=== PATIENT | male | born 1995 | race Caucasian/White ===

== ENCOUNTER 2022-08-12 16:53 | Inpatient (IN) | payer OTHER ==
[2022-08-12] MEDS ORDERED: SODIUM CHLORIDE 0.9% 1,000 ML IV STA ×2 (17:13)
[2022-08-12] MEDS ORDERED: ONDANSETRON 4 MG/2 ML VIAL IVP STA (17:13)
--- NOTE | 2022-08-12 17:14 | ED ---
Recheck HPI - General Chief Complaint: Arrhythmia/Palpitations Stated Complaint: Withdrawal Time Seen by Provider: 08/12/22 16:54 Source: patient, EMS, RN notes reviewed, old records reviewed, Caregiver Mode of arrival: EMS Limitations: no limitations - History of Present Illness Initial Comments: This is a 27-year-old male who presents from [facility]. Patient presents for evaluation of polysubstance abuse and use, most recently 3-4 days ago. Patient was found to be a significant elevated heart rate prior to arrival in the 180s 170s they did believe is atrial fibrillation with EMS and [place]. Patient has presentation for that as well as persistent withdrawal symptoms MD Complaint: other (Patient was sent for evaluation of withdrawal symptoms, nausea weakness sweating palpitations and possible atrial fibrillation as an outpatient) -: hour(s) Returns Today for: persistent/worsening pain related to initial visit Symptoms Since Prior Visit: no new symptoms Associated Symptoms: shortness of breath, nausea Treatments Prior to Arrival: other - Related Data Allergies Allergy/AdvReac Type Severity Reaction Status Date / Time No Known Allergies Allergy Verified 08/12/22 17:17 Review of Systems ROS Statement: Those systems with pertinent positive or pertinent negative responses have been documented in the HPI. ROS Other: All systems not noted in ROS Statement are negative. General Exam Limitations: no limitations General appearance: anxious Head exam: Present: atraumatic, normocephalic, normal inspection Eye exam: Present: normal appearance, PERRL, EOMI. Absent: scleral icterus, conjunctival injection, periorbital swelling ENT exam: Present: normal exam, mucous membranes moist Neck exam: Present: normal inspection. Absent: tenderness, meningismus, lymphadenopathy Respiratory exam: Present: normal lung sounds bilaterally. Absent: respiratory distress, wheezes, rales, rhonchi, stridor Cardiovascular Exam: Present: regular rate, normal rhythm, normal heart sounds. Absent: systolic murmur, diastolic murmur, rubs, gallop, clicks GI/Abdominal exam: Present: soft, normal bowel sounds. Absent: distended, tenderness, guarding, rebound, rigid Extremities exam: Present: normal inspection, full ROM, normal capillary refill. Absent: tenderness, pedal edema, joint swelling, calf tenderness Back exam: Present: normal inspection Neurological exam: Present: alert, oriented X3, CN II-XII intact Psychiatric exam: Present: normal affect, normal mood Skin exam: Present: warm, dry, intact, normal color. Absent: rash Course Vital Signs 08/12/22 16:58 Temperature 97.4 F L Pulse Rate 90 Respiratory 24 Rate Blood Pressure 158/100 O2 Sat by Pulse 98 Oximetry - Reevaluation(s) Reevaluation #1: 08/12/22 18:10 Medical records reviewed Reevaluation #2: 08/12/22 18:10 Patient has no change in symptoms here in the ER mildly improving in symptoms Reevaluation #3: 08/12/22 18:10 Patient informed results questions are answered Reevaluation #4: 08/12/22 18:11 Was pt. sent in by a medical professional or institution? @ -yes [facility] sent in for outside of their scope Did you speak to anyone other than the patient for history? @ -EMS and [facility] Did you review nursing and triage notes? @ -agree Were old charts reviewed? @ -prior admissions and ER evaluaions are reviewed Differential Diagnosis? @ -tachycardia EKG interpreted by me (3pts min.)? @ -yes X-rays interpreted by me (1pt min.)? @ -no CT interpreted by me (1pt min.)? @ -no U/S interpreted by me (1pt. min.)? @ -no What testing was considered but not performed? (CT, X-rays, U/S, labs)? Why? @ -no What meds were considered but not given? Why? @ -no patient with no current complaints Did you discuss the management of the patient with other professionals? @ -no Did you reconcile home meds? @ -no Was smoking cessation discussed for >3mins.? @ -no Was critical care preformed (if so, how long)? @ -no Were there social determinants of health that impacted care today? How? (Homelessness, low income, unemployed, alcoholism, drug addiction, transportation, low edu. Level, literacy, decrease access to med. care, senior care, rehab)? @ -no Was there de-escalation of care discussed even if they declined? (Discuss DNR or withdrawal of care, Hospice)? @ -no What co-morbidities impacted this encounter? (DM, HTN, Smoking, COPD, CAD, Cancer, CVA, Hep., AIDS, mental health diagnosis, sleep apnea, morbid obesity)? @ -none Was patient admitted / discharged? @ -admit Undiagnosed new problem with uncertain prognosis? @ -multiple falls history of, R elbow abrasion Drug Therapy requiring intensive monitoring for toxicity (Heparin, Nitro, Insulin, Cardizem)? @ -no Were any procedures done? @ -no Diagnosis/symptom? @ -withdrawal, ?afib Acute, or Chronic, or Acute on Chronic? @ -acute Uncomplicated (without systemic symptoms) or Complicated (systemic symptoms)? @ -uncompicated Side effects of treatment? @ -none Exacerbation, Progression, or Severe Exacerbation] @ -no Poses a threat to life or bodily function? @ -no Medical Decision Making - Medical Decision Making 27 male DF from [place] where he is going through polysubstance abuse wi thdrawal. Patient was found to be in possible atrial fibrillation with a heart rate in the 1 Dese which she is in normal sinus rhythm here EMS did also state that he did appear to go from heart rates of 180s to 90s here during transport. Patient uses multiple different substances with most recently is being about 4 days ago, patient is on prescribe Suboxone. - Lab Data Result diagrams: 08/12/22 17:20 08/12/22 17:20 Lab Results 08/12/22 08/12/22 08/12/22 Range/Units 17:20 17:20 17:20 WBC 6.9 (3.8-10.6) k/uL RBC 4.47 (4.30-5.90) m/uL Hgb 13.4 (13.0-17.5) gm/dL Hct 36.9 L (39.0-53.0) % MCV 82.6 (80.0-100.0) fL MCH 29.9 (25.0-35.0) pg MCHC 36.2 (31.0-37.0) g/dL RDW 12.6 (11.5-15.5) % Plt Count 209 (150-450) k/uL MPV 7.2 Neutrophils % 74 % Lymphocytes % 14 % Monocytes % 8 % Eosinophils % 1 % Basophils % 0 % Neutrophils # 5.1 (1.3-7.7) k/uL Lymphocytes # 1.0 (1.0-4.8) k/uL Monocytes # 0.5 (0-1.0) k/uL Eosinophils # 0.1 (0-0.7) k/uL Basophils # 0.0 (0-0.2) k/uL Hyperchromasia Slight PT 11.8 (9.0-12.0) sec INR 1.1 (<1.2) APTT 24.9 (22.0-30.0) sec Sodium 138 (137-145) mmol/L Potassium 3.7 (3.5-5.1) mmol/L Chloride 99 (98-107) mmol/L Carbon Dioxide 26 (22-30) mmol/L Anion Gap 13 mmol/L BUN 8 L (9-20) mg/dL Creatinine 0.62 L (0.66-1.25) mg/dL Est GFR (CKD-EPI)AfAm >90 (>60 ml/min/1.73 sqM) Est GFR (CKD-EPI)NonAf >90 (>60 ml/min/1.73 sqM) Glucose 104 H (74-99) mg/dL Calcium 9.6 (8.4-10.2) mg/dL Phosphorus 2.9 (2.5-4.5) mg/dL Magnesium 1.6 (1.6-2.3) mg/dL Total Bilirubin 1.0 (0.2-1.3) mg/dL AST 22 (17-59) U/L ALT 22 (4-49) U/L Alkaline Phosphatase 53 (38-126) U/L Troponin I (0.000-0.034) ng/mL Total Protein 8.1 (6.3-8.2) g/dL Albumin 4.9 (3.5-5.0) g/dL 08/12/22 Range/Units 17:20 WBC (3.8-10.6) k/uL RBC (4.30-5.90) m/uL Hgb (13.0-17.5) gm/dL Hct (39.0-53.0) % MCV (80.0-100.0) fL MCH (25.0-35.0) pg MCHC (31.0-37.0) g/dL RDW (11.5-15.5) % Plt Count (150-450) k/uL MPV Neutrophils % % Lymphocytes % % Monocytes % % Eosinophils % % Basophils % % Neutrophils # (1.3-7.7) k/uL Lymphocytes # (1.0-4.8) k/uL Monocytes # (0-1.0) k/uL Eosinophils # (0-0.7) k/uL Basophils # (0-0.2) k/uL Hyperchromasia PT (9.0-12.0) sec INR (<1.2) APTT (22.0-30.0) sec Sodium (137-145) mmol/L Potassium (3.5-5.1) mmol/L Chloride (98-107) mmol/L Carbon Dioxide (22-30) mmol/L Anion Gap mmol/L BUN (9-20) mg/dL Creatinine (0.66-1.25) mg/dL Est GFR (CKD-EPI)AfAm (>60 ml/min/1.73 sqM) Est GFR (CKD-EPI)NonAf (>60 ml/min/1.73 sqM) Glucose (74-99) mg/dL Calcium (8.4-10.2) mg/dL Phosphorus (2.5-4.5) mg/dL Magnesium (1.6-2.3) mg/dL Total Bilirubin (0.2-1.3) mg/dL AST (17-59) U/L ALT (4-49) U/L Alkaline Phosphatase (38-126) U/L Troponin I <0.012 (0.000-0.034) ng/mL Total Protein (6.3-8.2) g/dL Albumin (3.5-5.0) g/dL - EKG Data -: EKG Interpreted by Me (EKG shows A. fib 79 CO 78 QRS 413) Disposition Clinical Impression: Tachycardia, Palpitations, Polysubstance abuse, Withdrawal from recreational drug Narrative: Possible Atrial Fibrillation at [place] per report Disposition: ADMITTED IP TO THIS HOSP Condition: Fair Instructions (If sedation given, give patient instructions): Heart Palpitations (ED) Is patient prescribed a controlled substance at d/c from ED?: No Referrals: None,Stated [Primary Care Provider] - 1-2 days Time of Disposition: 18:10
[2022-08-12 17:32] LABS: Basophils % (A) 0 %; Eosinophils # (A) 0.1 k/uL (0-0.7); Eosinophils % (A) 1 %; HCT 36.9 % (39.0-53.0); HGB 13.4 gm/dL (13.0-17.5); Hyperchromasia Slight; Lymphocytes % (A) 14 %; MCH 29.9 pg (25.0-35.0); MCHC 36.2 g/dL (31.0-37.0); MCV 82.6 fL (80.0-100.0); Mean Platelet Volume 7.2; Monocytes # (A) 0.5 k/uL (0-1.0); Monocytes % (A) 8 %; Neutrophils # (A) 5.1 k/uL (1.3-7.7); Neutrophils % (A) 74 %; Platelet Count 209 k/uL (150-450); RBC 4.47 m/uL (4.30-5.90); RDW 12.6 % (11.5-15.5); WBC 6.9 k/uL (3.8-10.6)
[2022-08-12 17:37] LABS: INR 1.1 (<1.2); Partial Thromboplastin Time 24.9 sec (22.0-30.0); Prothrombin Time 11.8 sec (9.0-12.0)
[2022-08-12 17:47] LABS: ALT 22 U/L (4-49); AST 22 U/L (17-59); African American GFR (CKD) >90 (>60 ml/min/1.73 sqM); Albumin 4.9 g/dL (3.5-5.0); Alkaline Phosphatase 53 U/L (38-126); Anion Gap 13 mmol/L; Blood Urea Nitrogen 8 mg/dL (9-20); Calcium 9.6 mg/dL (8.4-10.2); Carbon Dioxide 26 mmol/L (22-30); Chloride 99 mmol/L (98-107); Glucose 104 mg/dL (74-99); Magnesium 1.6 mg/dL (1.6-2.3); Non-African American GFR(CKD) >90 (>60 ml/min/1.73 sqM); Phosphorus 2.9 mg/dL (2.5-4.5); Potassium 3.7 mmol/L (3.5-5.1); Sodium 138 mmol/L (137-145); Total Protein 8.1 g/dL (6.3-8.2)
[2022-08-12] MEDS ORDERED: cloNIDine 0.2 MG/24HR PATCH TRANSDERM SCH (18:00)
[2022-08-12] MEDS ORDERED: NALOXONE 0.4 MG/ML 1 ML VIAL IV PRN (18:01)
[2022-08-12] MEDS: SODIUM CHLORIDE 0.9% 1,000 ML IV SCH (18:49)
[2022-08-12] MEDS ORDERED: diphenhydrAMINE 50 MG/ML 1 ML VIAL IVP STA (20:40)
[2022-08-12] MEDS ORDERED: LORazepam 2 MG/ML INJ IV STA (20:40)
--- NOTE | 2022-08-12 20:54 | ED ---
Medical Decision Making - Medical Decision Making This is an addendum to document possible need for restraints and admission for further evaluation and management, currently,, call not physical sedation is working well - Lab Data Result diagrams: 08/12/22 17:20 08/12/22 17:20 Lab Results 08/12/22 08/12/22 08/12/22 Range/Units 17:20 17:20 17:20 WBC 6.9 (3.8-10.6) k/uL RBC 4.47 (4.30-5.90) m/uL Hgb 13.4 (13.0-17.5) gm/dL Hct 36.9 L (39.0-53.0) % MCV 82.6 (80.0-100.0) fL MCH 29.9 (25.0-35.0) pg MCHC 36.2 (31.0-37.0) g/dL RDW 12.6 (11.5-15.5) % Plt Count 209 (150-450) k/uL MPV 7.2 Neutrophils % 74 % Lymphocytes % 14 % Monocytes % 8 % Eosinophils % 1 % Basophils % 0 % Neutrophils # 5.1 (1.3-7.7) k/uL Lymphocytes # 1.0 (1.0-4.8) k/uL Monocytes # 0.5 (0-1.0) k/uL Eosinophils # 0.1 (0-0.7) k/uL Basophils # 0.0 (0-0.2) k/uL Hyperchromasia Slight PT 11.8 (9.0-12.0) sec INR 1.1 (<1.2) APTT 24.9 (22.0-30.0) sec Sodium 138 (137-145) mmol/L Potassium 3.7 (3.5-5.1) mmol/L Chloride 99 (98-107) mmol/L Carbon Dioxide 26 (22-30) mmol/L Anion Gap 13 mmol/L BUN 8 L (9-20) mg/dL Creatinine 0.62 L (0.66-1.25) mg/dL Est GFR (CKD-EPI)AfAm >90 (>60 ml/min/1.73 sqM) Est GFR (CKD-EPI)NonAf >90 (>60 ml/min/1.73 sqM) Glucose 104 H (74-99) mg/dL Calcium 9.6 (8.4-10.2) mg/dL Phosphorus 2.9 (2.5-4.5) mg/dL Magnesium 1.6 (1.6-2.3) mg/dL Total Bilirubin 1.0 (0.2-1.3) mg/dL AST 22 (17-59) U/L ALT 22 (4-49) U/L Alkaline Phosphatase 53 (38-126) U/L Troponin I (0.000-0.034) ng/mL Total Protein 8.1 (6.3-8.2) g/dL Albumin 4.9 (3.5-5.0) g/dL TSH 1.920 (0.465-4.680) mIU/L 08/12/22 Range/Units 17:20 WBC (3.8-10.6) k/uL RBC (4.30-5.90) m/uL Hgb (13.0-17.5) gm/dL Hct (39.0-53.0) % MCV (80.0-100.0) fL MCH (25.0-35.0) pg MCHC (31.0-37.0) g/dL RDW (11.5-15.5) % Plt Count (150-450) k/uL MPV Neutrophils % % Lymphocytes % % Monocytes % % Eosinophils % % Basophils % % Neutrophils # (1.3-7.7) k/uL Lymphocytes # (1.0-4.8) k/uL Monocytes # (0-1.0) k/uL Eosinophils # (0-0.7) k/uL Basophils # (0-0.2) k/uL Hyperchromasia PT (9.0-12.0) sec INR (<1.2) APTT (22.0-30.0) sec Sodium (137-145) mmol/L Potassium (3.5-5.1) mmol/L Chloride (98-107) mmol/L Carbon Dioxide (22-30) mmol/L Anion Gap mmol/L BUN (9-20) mg/dL Creatinine (0.66-1.25) mg/dL Est GFR (CKD-EPI)AfAm (>60 ml/min/1.73 sqM) Est GFR (CKD-EPI)NonAf (>60 ml/min/1.73 sqM) Glucose (74-99) mg/dL Calcium (8.4-10.2) mg/dL Phosphorus (2.5-4.5) mg/dL Magnesium (1.6-2.3) mg/dL Total Bilirubin (0.2-1.3) mg/dL AST (17-59) U/L ALT (4-49) U/L Alkaline Phosphatase (38-126) U/L Troponin I <0.012 (0.000-0.034) ng/mL Total Protein (6.3-8.2) g/dL Albumin (3.5-5.0) g/dL TSH (0.465-4.680) mIU/L Disposition Clinical Impression: Tachycardia, Palpitations, Polysubstance abuse, Withdrawal from recreational drug Disposition: ADMITTED IP TO THIS HOSP Condition: Fair
[2022-08-12] MEDS: MELATONIN 5 MG TABLET PO SCH (22:54)
[2022-08-13] MEDS: SODIUM CHLORIDE 0.9% 1,000 ML IV SCH ×3 (01:05→18:27)
[2022-08-13] MEDS: LORazepam 2 MG/ML INJ IV PRN ×6 (01:49→23:29)
[2022-08-13] MEDS: diphenhydrAMINE 50 MG/ML 1 ML VIAL IVP PRN ×3 (07:00→18:57)
[2022-08-13] MEDS ORDERED: MULTIVITAMINS, THERA 1 EACH TAB PO PRN (09:25)
[2022-08-13] MEDS ORDERED: HYOSCYAMINE SULFATE 0.125 MG TAB PO PRN (09:25)
[2022-08-13] MEDS ORDERED: IBUPROFEN 600 MG TAB PO PRN (09:25)
[2022-08-13] MEDS: SERTRALINE 100 MG TAB PO SCH (11:04)
[2022-08-13] MEDS: ONDANSETRON 4 MG/2 ML VIAL IVP PRN (11:56)
[2022-08-13] MEDS: NON FORMULARY DRUG (Atomoxetine Hcl [Strattera] 40 MG Capsule) PO SCH (12:03)
--- NOTE | 2022-08-13 15:55 | P.HPIM ---
History of Present Illness H&P Date: 08/13/22 Chief Complaint: Palpitations 27-year-old male who presents from [facility] management of electrolytes. Patient presents for evaluation of polysubstance abuse and use, most recently 3-4 days ago. Patient was found to be a significant elevated heart rate prior to arrival in the 180s 170s they did believe is atrial fibrillation with EMS and [place]. Patient has presentation for that as well as persistent withdrawal symptoms Patient was also noted to be in atrial fibrillation in route to ED but was found to be in normal sinus rhythm upon arrival; patient was reported to have heart rate in 180s to 190s during transport Phani completed in ED reveals a WBC of 6.9, hemoglobin of 13.4 and platelet count of 209, sodium 138, potassium 3.7, BUN/creatinine of 8/0.62 and blood glucose of 104 Review of Systems REVIEW OF SYSTEMS: CONSTITUTIONAL: No fever, no malaise, no fatigue. HEENT: No recent visual problems or hearing problems. Denied any sore throat. CARDIOVASCULAR: No chest pain, orthopnea, PND, no palpitations, no syncope. PULMONARY: No shortness of breath, no cough, no hemoptysis. GASTROINTESTINAL: No diarrhea, no nausea, no vomiting, no abdominal pain. NEUROLOGICAL: No headaches, no weakness, no numbness. HEMATOLOGICAL: Denies any bleeding or petechiae. GENITOURINARY: Denies any burning micturition, frequency, or urgency. MUSCULOSKELETAL/RHEUMATOLOGICAL: Denies any joint pain, swelling, or any muscle pain. ENDOCRINE: Denies any polyuria or polydipsia. The rest of the 14-point review of systems is negative. Past Medical History Past Medical History: No Reported History History of Any Multi-Drug Resistant Organisms: Unobtainable Past Psychological History: Anxiety, Depression, PTSD Smoking Status: Current every day smoker Past Alcohol Use History: None Reported Past Drug Use History: Cocaine, Marijuana, Opiates Medications and Allergies Home Medications Medication Instructions Recorded Confirmed Type Acetaminophen Tab [Tylenol] 650 mg PO QID 08/12/22 08/12/22 History Calcium, Magnesium, Zinc With 1 tab PO DAILY 08/12/22 08/12/22 History Vitamin D3 Chlorpheniramine Maleate 4 mg PO Q4H PRN MDD 16mg 08/12/22 08/12/22 History [Chlor-Trimeton] Docusate [Colace] 100 mg PO BID PRN 08/12/22 08/12/22 History Hyoscyamine Sulfate [Levsin] 0.125 mg PO QID PRN 08/12/22 08/12/22 History Ibuprofen [Motrin Ib] 600 mg PO Q6H PRN 08/12/22 08/12/22 History Loperamide HCl [Imodium A-D] 4 mg PO QID PRN MDD 16 mg 08/12/22 08/12/22 History Multivitamins, Thera [Multivitamin 1 tab PO DAILY PRN 08/12/22 08/12/22 History (formulary)] PHENobarbitaL [Luminal] 1 dose PO DIRECTED 08/12/22 08/12/22 History Sertraline [Zoloft] 200 mg PO DAILY 08/12/22 08/12/22 History ondansetron HCL [Zofran] 8 mg PO QID PRN 08/12/22 08/12/22 History Atomoxetine HCl [Strattera] 40 mg PO 08/13/22 History clonazePAM [Klonopin ODT] 0.25 mg PO 08/13/22 History Allergies Allergy/AdvReac Type Severity Reaction Status Date / Time No Known Allergies Allergy Verified 08/12/22 19:13 Physical Exam Vitals: Vital Signs Temp Pulse Pulse Resp BP BP Pulse Ox 08/13/22 08:37 97.5 F L 78 18 136/78 96 08/13/22 08:10 80 18 125/72 95 08/13/22 07:02 125/69 08/13/22 05:34 78 16 97 08/13/22 04:00 80 16 110/79 08/13/22 01:31 76 18 97/54 98 08/12/22 22:30 82 16 116/79 98 08/12/22 22:00 74 16 128/81 98 08/12/22 19:31 97.6 F 78 17 149/91 95 08/12/22 18:51 78 20 135/81 100 08/12/22 17:30 140/87 08/12/22 16:58 97.4 F L 90 24 158/100 98 Intake and Output 08/12/22 08/13/22 08/13/22 22:59 06:59 14:59 Other: Weight 68.039 kg PHYSICAL EXAMINATION: GENERAL: The patient is alert and oriented x3, not in any acute distress. Well developed, well nourished. HEENT: Pupils are round and equally reacting to light. EOMI. No scleral icterus. No conjunctival pallor. Normocephalic, atraumatic. No pharyngeal erythema. No thyromegaly. CARDIOVASCULAR: S1 and S2 present. No murmurs, rubs, or gallops. Patient remains tachycardic PULMONARY: Chest is clear to auscultation, no wheezing or crackles. ABDOMEN: Soft, nontender, nondistended, normoactive bowel sounds. No palpable or ganomegaly. MUSCULOSKELETAL: No joint swelling or deformity. EXTREMITIES: No cyanosis, clubbing, or pedal edema. NEUROLOGICAL: Gross neurological examination did not reveal any focal deficits. SKIN: No rashes. Results CBC & Chem 7: 08/12/22 17:20 08/12/22 17:20 Labs: Abnormal Lab Results - Last 24 Hours (Table) 08/12/22 08/12/22 Range/Units 17:20 17:20 Hct 36.9 L (39.0-53.0) % BUN 8 L (9-20) mg/dL Creatinine 0.62 L (0.66-1.25) mg/dL Glucose 104 H (74-99) mg/dL Assessment and Plan Assessment: 1. Since abuse/withdrawal from [place] where he is going through polysubstance abuse withdrawal. Patient was found to be in possible atrial fibrillation with a heart rate in the 180s to 190; upon arrival to ED patient was found to be in normal sinus rhythm here EMS did also state that he did appear to go from heart rates of 180s to 90s here during transport. Patient uses multiple different substances with most recently is being about 4 days ago, patient is on prescribe Suboxone. -- Patient has been placed on IV Ativan for withdrawal - Psych is consulted for further recommendations 2. Sinus tachycardia - Possibility of patient being in and out of atrial fibrillation with RVR in route to ED; upon arrival patient was found to be normal sinus rhythm - Patient continues to have a heart rate jumping in 180s with minimal activity; likely related to withdrawal - We will consult cardiology for further recommendations 3. Paroxysmal atrial fibrillation; patient was normal sinus rhythm: Regular to ED - We will continue with telemetry; monitor electrolytes and order TSH levels DVT prophylaxis; SCDs CODE STATUS; full code
[2022-08-13] MEDS: NICOTINE 14MG/24HR PATCH TRANSDERM SCH (16:54)
[2022-08-13] MEDS: NICOTINE GUM (POLACRILEX) 2 MG GUM BUCCAL PRN (16:54)
[2022-08-13 17:12] LABS: Urine Alcohol Negative (Negative); Urine Barbiturate Positive (Negative); Urine Cocaine Negative (Negative); Urine Methadone Negative (Negative); Urine Opiates Negative (Negative); Urine Phencyclidine Negative (Negative)
--- NOTE | 2022-08-13 17:20 | P.CN ---
Psychiatric Consult - . Consult:: IDENTIFYING DATA: Patient is a 27-year-old male who is admitted for detox. HPI: Patient states that he was asked to come here for rehab for treatment for his withdrawals. Patient states that he was weaning himself off of Suboxone and was down to 18 of a strip per day. She also states that he was weaning himself off of Klonopin and he last took this 2 days ago. Per record review, patient has been abusing multiple substances. Patient reports periods of depression during which she does not shower, has low appetite, has low energy. He also reports a history of panic attacks with palpitations, tingling, chest pain, shortness of breath. States that he has been on multiple SSRIs but no medication has worked for him. States that he was started on Strattera recently which helped him significantly. However he accidentally talk twice the amount of Strattera which caused him to have significant heart palpitations. Patient is unhappy about being here and wants to be discharged. Patient denies any suicidal or homicidal ideations intent or plan. At this time patient denies any auditory or visual hallucinations. Patient denies any flight of ideas racing thoughts and increased in goal directed behavior. Patient admits to using [] PAST PSYCHIATRIC HISTORY: History of ADHD and depression. States that he follows up with a psychiatrist. Has been admitted once for suicidal ideations in the past but states that he did not mean to suicidal ideations PMH:[denies] ALLERGIES: as per EMR CHEMICAL DEPENDENCY HISTORY: as per HPI FAMILY PSYCHIATRIC/SUBSTANCE USE HISTORY: Does not know SOCIAL HISTORY: Had his license suspended due to a panic attack. Currently does not have a job MENTAL STATUS EXAM: General Appearance: Patient appears to be stated age is alert, [directable, and attempts to cooperate]. Patient appears to have [poor] hygiene and grooming. He is sitting on bed with his head down crying and making poor eye contact Behavior: Cooperative Speech: Elevated rate, yelling at times Mood/Affect: Dysthymic and crying a majority of the interview, becomes irritable at times Suicidality/Homicidality: Patient denies having any homicidal ideation intent or plan. [Denies any suicidal ideations intent or plan] Perceptions: Patient denies any visual hallucinations [and denies any auditory hallucinations] Though content/process: [There is no evidence of any delusional thought content and thought process is linear and goal-directed.] Memory and concentration: AOX3, Judgment and insight: [poor] IMPRESSIONS: Depression unspecified, anxiety unspecified, polysubstance use disorder PLAN: -Currently patient meets criteria for inpatient hospitalization -Continue current medical management and treatment of detox -Continue Zoloft 200 mg daily -Would recommend starting Strattera 40 mg daily, but the medication is nonformulary -Nicotine patch and gum for nicotine replacement therapy -Patient may not leave AMA] [] 08/13/22 17:13
[2022-08-13] MEDS ORDERED: HALOPERIDOL LACTATE 5 MG/ML 1 ML VIAL IM STA (17:36)
[2022-08-14] MEDS: LORazepam 2 MG/ML INJ IV PRN ×5 (05:56→22:09)
[2022-08-14] MEDS: MELATONIN 5 MG TABLET PO SCH ×2 (05:57→21:09)
[2022-08-14] MEDS: SODIUM CHLORIDE 0.9% 1,000 ML IV SCH ×2 (07:20→19:09)
[2022-08-14] MEDS: NON FORMULARY DRUG (Atomoxetine Hcl [Strattera] 40 MG Capsule) PO SCH (07:20)
[2022-08-14 08:48] LABS: African American GFR (CKD) >90 (>60 ml/min/1.73 sqM); Anion Gap 10 mmol/L; Blood Urea Nitrogen 13 mg/dL (9-20); Calcium 9.3 mg/dL (8.4-10.2); Carbon Dioxide 27 mmol/L (22-30); Chloride 104 mmol/L (98-107); Glucose 87 mg/dL (74-99); Non-African American GFR(CKD) >90 (>60 ml/min/1.73 sqM); Potassium 4.2 mmol/L (3.5-5.1); Sodium 141 mmol/L (137-145)
[2022-08-14 10:10] LABS: T4, Free (Free Thyroxine) 1.48 ng/dL (0.78-2.19)
[2022-08-14] MEDS: SERTRALINE 100 MG TAB PO SCH (10:12)
[2022-08-14] MEDS: diphenhydrAMINE 50 MG/ML 1 ML VIAL IVP PRN (10:12)
[2022-08-14] MEDS: METOPROLOL SUCCINATE (ER) 25 MG TAB.ER.24H PO SCH (10:12)
[2022-08-14] MEDS: ONDANSETRON 4 MG/2 ML VIAL IVP PRN (11:06)
[2022-08-14] MEDS: NICOTINE GUM (POLACRILEX) 2 MG GUM BUCCAL PRN ×2 (11:14→17:35)
--- NOTE | 2022-08-14 11:37 | P.CRDCN ---
History of Present Illness Consult date: 08/14/22 History of present illness: HISTORY OF PRESENT ILLNESS: This is a 27-year-old male with a past medical history significant for with tachycardia, depression, anxiety, and polysubstance abuse. Patient does not follow with a sfdc architect. We have been asked to see the patient in consultation for possible atrial fibrillation. Patient examined at the bedside. Patient was brought to the hospital from [place] secondary to tachycardia. EKG and telemetry tracings reviewed revealing sinus tachycardia with no evidence of atrial fibrillation. The patient currently denies chest pain or pressure. He denies shortness of breath. Blood pressure is stable. Patient remains tachycardic this morning with a heart rate in the 130s. Patient is extremely anxious and pacing in his room. * EKG reveals sinus mechanism with no signs of acute ischemia * Laboratory data: WBC 6.9. Hemoglobin 13.4. Platelet count 209. Sodium 142. Potassium 4.2. BUN 13. Creatinine 0.75. * Current home cardiac medications include none REVIEW OF SYSTEMS: At the time of my exam: CONSTITUTIONAL: Denies fever or chills. HEENT: Denies blurred vision, vision changes, or eye pain. Denies hemoptysis CARDIOVASCULAR: Denies chest pain. Denies orthopnea. Denies PND. Denies palpitations RESPIRATORY: Denies shortness of breath. GASTROINTESTINAL: Denies abdominal pain. Denies nausea or vomiting. HEMATOLOGIC: Denies bleeding disorders. GENITOURINARY: Denies any blood in urine. SKIN: Denies pruitis. Denies rash. PHYSICAL EXAM: VITAL SIGNS: Reviewed. GENERAL: Well-developed in no acute distress. HEENT: Head is normocephalic. Pupils are equal, round. Sclerae anicteric. Mucous membranes of the mouth are moist. Neck supple. No JVD or thyromegaly LUNGS: Respirations even and unlabored. Lungs essentially clear to auscultation bilaterally. HEART: Tachycardic. Regular rate and rhythm. S1 and S2 heard. ABDOMEN: Soft. Nondistended. Nontender. EXTREMITIES: Normal range of motion. No clubbing or cyanosis. Peripheral pulses intact. No lower extremity edema NEUROLOGIC: Awake and alert. Oriented x 3. Appears anxious and pacing in his room. ASSESSMENT: Sinus tachycardia, no evidence of atrial fibrillation History of tachycardia, per patient Depression Anxiety Polysubstance abuse PLAN: Obtain 2D echo to assess cardiac structure and function Discontinue Clonidine patch Begin Metoprolol succinate 25mg daily Recommend abstinence from drug use Further recommendations pending patient course Nurse practitioner note has been reviewed by physician. Signing provider agrees with the documented findings, assessment, and plan of care. Past Medical History Past Medical History: No Reported History History of Any Multi-Drug Resistant Organisms: Unobtainable Past Anesthesia/Blood Transfusion Reactions: No Reported Reaction Past Psychological History: Anxiety, Depression, PTSD Smoking Status: Current every day smoker Past Alcohol Use History: None Reported Past Drug Use History: Cocaine, Marijuana, Opiates Medications and Allergies Home Medications Medication Instructions Recorded Confirmed Type Acetaminophen Tab [Tylenol] 650 mg PO QID 08/12/22 08/12/22 History Calcium, Magnesium, Zinc With 1 tab PO DAILY 08/12/22 08/12/22 History Vitamin D3 Chlorpheniramine Maleate 4 mg PO Q4H PRN MDD 16mg 08/12/22 08/12/22 History [Chlor-Trimeton] Docusate [Colace] 100 mg PO BID PRN 08/12/22 08/12/22 History Hyoscyamine Sulfate [Levsin] 0.125 mg PO QID PRN 08/12/22 08/12/22 History Ibuprofen [Motrin Ib] 600 mg PO Q6H PRN 08/12/22 08/12/22 History Loperamide HCl [Imodium A-D] 4 mg PO QID PRN MDD 16 mg 08/12/22 08/12/22 History Multivitamins, Thera [Multivitamin 1 tab PO DAILY PRN 08/12/22 08/12/22 History (formulary)] PHENobarbitaL [Luminal] 1 dose PO DIRECTED 08/12/22 08/12/22 History Sertraline [Zoloft] 200 mg PO DAILY 08/12/22 08/12/22 History ondansetron HCL [Zofran] 8 mg PO QID PRN 08/12/22 08/12/22 History Atomoxetine HCl [Strattera] 40 mg PO 08/13/22 History clonazePAM [Klonopin ODT] 0.25 mg PO 08/13/22 History Allergies Allergy/AdvReac Type Severity Reaction Status Date / Time No Known Allergies Allergy Verified 08/12/22 19:13 Physical Exam Vitals: Vital Signs Temp Pulse Resp BP Pulse Ox 08/14/22 10:34 97.8 F 144 H 18 120/78 96 08/14/22 04:00 121 H 16 142/89 97 08/14/22 02:00 80 16 08/14/22 00:00 98.7 F 80 16 120/76 97 08/13/22 20:00 102 H 18 08/13/22 16:57 98.0 F 102 H 18 126/74 98 Intake and Output 08/13/22 08/14/22 08/14/22 22:59 06:59 14:59 Output Total 0 Balance 0 Output: Urine 0 Other: Voiding Method Toilet Toilet Toilet Results 08/12/22 17:20 08/14/22 07:42 Comprehensive Metabolic Panel 08/14/22 Range/Units 07:42 Sodium 141 (137-145) mmol/L Potassium 4.2 (3.5-5.1) mmol/L Chloride 104 (98-107) mmol/L Carbon Dioxide 27 (22-30) mmol/L BUN 13 (9-20) mg/dL Creatinine 0.75 (0.66-1.25) mg/dL Glucose 87 (74-99) mg/dL Calcium 9.3 (8.4-10.2) mg/dL Current Medications Generic Name Dose Route Start Last Admin Trade Name Freq PRN Reason Stop Dose Admin Diphenhydramine HCl 25 mg 08/12/22 20:40 08/14/22 10:12 Diphenhydramine 50 Mg/Ml 1 Ml Vial IVP 25 mg Q6HR PRN Administration Allergy Symptoms Hyoscyamine 0.125 mg 08/13/22 09:25 Hyoscyamine Sulfate 0.125 Mg Tab PO QID PRN cramping Sodium Chloride 1,000 mls @ 130 mls/hr 08/12/22 18:15 08/14/22 07:20 Saline 0.9% IV Not Given .[id number] [facility] Ibuprofen 600 mg 08/13/22 09:25 Ibuprofen 600 Mg Tab PO Q6H PRN Pain or Fever > 100.5 Lorazepam 1 mg 08/12/22 20:40 08/14/22 10:12 Lorazepam 2 Mg/Ml Inj IV 1 mg Q4HR PRN Administration Anxiety Melatonin 5 mg 08/12/22 21:30 08/14/22 05:57 Melatonin 5 Mg Tablet PO Not Given HS IVETTE Metoprolol Succinate 25 mg 08/14/22 09:00 08/14/22 10:12 Metoprolol Succinate (Er) 25 Mg Tab.Er.24h PO 25 mg DAILY IVETTE Administration Multivitamins 1 each 08/13/22 09:25 Multivitamins, Thera 1 Each Tab PO DAILY PRN supplement Naloxone HCl 0.2 mg 08/12/22 18:01 Naloxone 0.4 Mg/Ml 1 Ml Vial IV Q2M PRN Opioid Reversal Nicotine 1 patch 08/13/22 16:30 08/13/22 16:54 Nicotine 14mg/24hr Patch TRANSDERM 1 patch DAILY IVETTE Administration Nicotine Polacrilex 2 mg 08/13/22 16:26 08/14/22 11:14 Nicotine Gum (Polacrilex) 2 Mg Gum BUCCAL 2 mg Q2HR PRN Administration Nicotine Cravings Non-Formulary Medication 40 mg 08/13/22 09:30 08/14/22 07:20 Atomoxetine Hcl [Strattera] PO Not Given DAILY IVETTE Ondansetron HCl 4 mg 08/12/22 18:01 08/14/22 11:06 Ondansetron 4 Mg/2 Ml Vial IVP 4 mg Q8HR PRN Administration Nausea And Vomiting Sertraline HCl 200 mg 08/13/22 09:30 08/14/22 10:12 Sertraline 100 Mg Tab PO 200 mg DAILY IVETTE Administration Intake and Output 08/13/22 08/14/22 08/14/22 22:59 06:59 14:59 Output Total 0 Balance 0 Output: Urine 0 Other: Voiding Method Toilet Toilet Toilet 08/12/22 17:20 08/14/22 07:42
[2022-08-14] MEDS: NICOTINE 14MG/24HR PATCH TRANSDERM SCH (13:00)
--- NOTE | 2022-08-14 16:25 | P.PN ---
Subjective Progress Note Date: 08/14/22 27-year-old male who presents from [facility] management of electrolytes. Patient presents for evaluation of polysubstance abuse and use, most recently 3-4 days ago. Patient was found to be a significant elevated heart rate prior to arrival in the 180s 170s they did believe is atrial fibrillation with EMS and [facility]. Patient has presentation for that as well as persistent withdrawal symptoms Patient was also noted to be in atrial fibrillation in route to ED but was found to be in normal sinus rhythm upon arrival; patient was reported to have heart rate in 180s to 190s during transport Phani completed in ED reveals a WBC of 6.9, hemoglobin of 13.4 and platelet count of 209, sodium 138, potassium 3.7, BUN/creatinine of 8/0.62 and blood glucose of 104 08/14/2022 Patient is evaluated today ambulating in hallway and room. He is anxious and states he has anxiety 24/7. He continues to be tachycardic and has been started on toprol. He received his first dose this morning and now reporting symptoms of restless leg. He is requesting medication for this. He is evaluated by cardiol jaun and echocardiogram has been ordered. Heart rate of 140s this morning. TSH of 0.285, free T4 normal. Review of Systems Constitutional: Denied any fatigue denied any fever. Cardio vascular: denied any chest pain, palpitations Gastrointestinal: denied any nausea, vomiting, diarrhea Pulmonary: Denied any shortness of breath cough Neurologic denied any new focal deficits All inpatient medications were reviewed and appropriate changes in these medications as dictated in the interval history and assessment and plan. PHYSICAL EXAMINATION: GENERAL: The patient is alert and oriented x3, not in any acute distress. Well developed, well nourished. HEENT: Pupils are round and equally reacting to light. EOMI. No scleral icterus. No conjunctival pallor. Normocephalic, atraumatic. No pharyngeal erythema. No thyromegaly. CARDIOVASCULAR: S1 and S2 present. No murmurs, rubs, or gallops. Tachycardic, regular rate and rhythm. PULMONARY: Chest is clear to auscultation, no wheezing or crackles. ABDOMEN: Soft, nontender, nondistended, normoactive bowel sounds. No palpable organomegaly. MUSCULOSKELETAL: No joint swelling or deformity. EXTREMITIES: No cyanosis, clubbing, or pedal edema. NEUROLOGICAL: Gross neurological examination did not reveal any focal deficits. SKIN: No rashes. Assessment and Plan Assessment Substance abuse and withdrawal sent from [facility] Sinus tachycardia likely from withdrawal and anxiety also patient had taken doub le the amount of his strattera outpatient Anxiety/Depression/PTSD Daily tobacco use GI prophylaxis Full Code Plan Psychiatry consulted and patient cannot leave AMA, patient is recommended for IP hospitalization when medically clear Continue current recommendations per psychiatry Benadryl and levsin discontinued recommend to avoid anticholinergic medications Started on Toprol XL and echocardiogram ordered and pending Further recommendations pending The impression and plan of care has been dictated by Allie Ramirez Nurse Practitioner as directed. Dr. Lorena MD I have performed a history and physical examination and medical decision making of this patient, discussed the same with the dictator, and agree with the dictators assessment and plan as written, documented as a scribe. Based on total visit time, I have performed more than 50% of this visit. Objective - Vital Signs Vital signs: Vital Signs Temp 97.9 F 08/14/22 12:33 Pulse 100 08/14/22 12:33 Resp 18 08/14/22 12:33 BP 120/76 08/14/22 12:33 Pulse Ox 96 08/14/22 12:33 FiO2 Intake & Output 08/13/22 08/14/22 08/14/22 18:59 06:59 18:59 Intake Total 540 Output Total 600 0 Balance -600 0 540 Weight 68.039 kg Intake: Oral 540 Output: Urine 600 0 Other: Voiding Method Toilet Toilet Toilet # Voids 1 - Labs CBC & Chem 7: 08/12/22 17:20 08/14/22 07:42 Labs: Abnormal Lab Results - Last 24 Hours (Table) 08/13/22 08/14/22 Range/Units 11:15 07:42 TSH 0.285 L (0.465-4.680) mIU/L Urine Barbiturates Positive A (Negative) U Cannabinoids Screen Positive A (Negative) Assessment and Plan Time with Patient: Less than 30
[2022-08-14] MEDS ORDERED: diphenhydrAMINE 50 MG/ML 1 ML VIAL IVP STA (20:40)
[2022-08-15] MEDS: LORazepam 2 MG/ML INJ IV PRN ×4 (04:25→15:26)
[2022-08-15 07:56] VITALS: RESP 19; TEMP 98.3
[2022-08-15] MEDS: SERTRALINE 100 MG TAB PO SCH (07:56)
[2022-08-15] MEDS: NON FORMULARY DRUG (Atomoxetine Hcl [Strattera] 40 MG Capsule) PO SCH (07:56)
[2022-08-15] MEDS: METOPROLOL SUCCINATE (ER) 25 MG TAB.ER.24H PO SCH (07:57)
[2022-08-15] MEDS: NICOTINE 14MG/24HR PATCH TRANSDERM SCH (07:57)
--- NOTE | 2022-08-15 09:40 | CA ---
Transthoracic Echo Report Name: Wiliam Ewing Age: 27 Gender: M : 1995 Exam Date: 08/14/2022 13:54 Exam Location: [place] [facility] Ht (in): 71 Wt (lb): 150 Ordering Physician: Marilea Estrada Attending/Referring Phys: [id number], Natalie Kitchen Stewardess Ally Bejarano, MARY Procedure CPT: Indications: LV function Cardiac Hx: Technical Quality: Good Contrast 1: Total Dose (mL): Contrast 2: Total Dose (mL): MEASUREMENTS (Male / Female) Normal Values 2D ECHO LV Diastolic Diameter PLAX 3.8 cm 4.2 - 5.9 / 3.9 - 5.3 cm LV Systolic Diameter PLAX 2.7 cm IVS Diastolic Thickness 0.8 cm 0.6 - 1.0 / 0.6 - 0.9 cm LVPW Diastolic Thickness 0.9 cm 0.6 - 1.0 / 0.6 - 0.9 cm LV Relative Wall Thickness 0.5 RV Internal Dim ED PLAX 2.9 cm LA Systolic Diameter LX 2.6 cm 3.0 - 4.0 / 2.7 - 3.8 cm LV Diastolic Volume MOD 4C 57.9 cm??? LV Systolic Volume MOD 4C 32.2 cm??? LV Ejection Fraction MOD 4C 44.5 % LV Diastolic Length 4C 7.1 cm LV Systolic Length 4C 5.9 cm LV Diastolic Volume MOD 2C 105.6 cm??? LV Systolic Volume MOD 2C 37.8 cm??? LV Ejection Fraction MOD 2C 64.2 % LV Diastolic Length 2C 7.9 cm LV Systolic Length 2C 6.1 cm LA Volume 22.3 cm??? 18 - 58 / 22 - 52 cm??? M-MODE Aortic Root Diameter MM 3.0 cm MV E Point Septal Separation 0.5 cm AV Cusp Separation MM 2.4 cm DOPPLER AV Peak Velocity 97.3 cm/s AV Peak Gradient 3.8 mmHg MV Area PHT 2.8 cm??? Mitral E Point Velocity 51.3 cm/s Mitral A Point Velocity 49.7 cm/s Mitral E to A Ratio 1.0 MV Deceleration Time 273.4 ms MV E' Velocity 11.1 cm/s Mitral E to MV E' Ratio 4.6 FINDINGS Left Ventricle Left ventricular ejection fraction is estimated at 55-60 %. Left ventricular cavity size normal. Left ventricular wall thickness normal. Normal left ventricular wall motion. Right Ventricle Normal right ventricular size and function. No TR unable to estimate the right ventricular systolic pressure. Right Atrium Normal right atrial size. Left Atrium Normal left atrial size. Mitral Valve Structurally normal mitral valve. No mitral stenosis, regurgitation or prolapse. Aortic Valve Trileaflet aortic valve. No aortic valve stenosis or regurgitation. Tricuspid Valve Structurally normal tricuspid valve. No tricuspid stenosis, regurgitation or prolapse. Pulmonic Valve Structurally normal pulmonic valve. No pulmonic regurgitation. Pericardium Normal pericardium. No pericardial effusion. Aorta Normal size aortic root and proximal ascending aorta. CONCLUSIONS Normal LV size and systolic function. No significant abnormality on the Doppler exam. No pericardial effusion Previewed by: Dr. Tyrel Mora MD (Electronically Signed) Final Date: 15 August 2022 09:39
--- NOTE | 2022-08-15 11:17 | P.PN ---
Subjective Progress Note Date: 08/15/22 HISTORY OF PRESENT ILLNESS: This is a 27-year-old male with a past medical history significant for with tachycardia, depression, anxiety, and polysubstance abuse. 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 We have been asked to see the patient in consultation for possible atrial fibrillation. Patient examined at the bedside. Patient was brought to the hospital from [place] secondary to tachycardia. EKG and telemetry tracings reviewed revealing sinus tachycardia with no evidence of atrial fibrillation. The patient currently denies chest pain or pressure. He denies shortness of breath. Blood pressure is stable. Patient remains tachycardic this morning with a heart rate in the 130s. Patient is extremely anxious and pacing in his room. * EKG reveals sinus mechanism with no signs of acute ischemia * Laboratory data: WBC 6.9. Hemoglobin 13.4. Platelet count 209. Sodium 142. Potassium 4.2. BUN 13. Creatinine 0.75. * Current home cardiac medications include none 08/15/2022 Patient examined this morning at the bedside. Patient is much less anxious today compared to yesterday. He denies chest pain or pressure. Denies shortness of breath. Telemetry reveals sinus mechanism with heart rate in the 80s. Echocardiogram completed revealing ejection fraction 55-60% PHYSICAL EXAM: VITAL SIGNS: Reviewed. GENERAL: Well-developed in no acute distress. HEENT: Head is normocephalic. Pupils are equal, round. Sclerae anicteric. Mucous membranes of the mouth are moist. Neck supple. No JVD or thyromegaly LUNGS: Respirations even and unlabored. Lungs essentially clear to auscultation bilaterally. HEART: Regular rate and rhythm. S1 and S2 heard. ABDOMEN: Soft. Nondistended. Nontender. EXTREMITIES: Normal range of motion. No clubbing or cyanosis. Peripheral pulses intact. No lower extremity edema NEUROLOGIC: Awake and alert. Oriented x 3. ASSESSMENT: Sinus tachycardia, no evidence of atrial fibrillation History of tachycardia, per patient Depression Anxiety Polysubstance abuse PLAN: Continue current dose of metoprolol succinate Recommend abstinence from drug use Patient is medically cleared to be transferred to inpatient psychiatric unit from a cardiology standpoint We will sign off. Please reconsult if needed. Nurse practitioner note has been reviewed by physician. Signing provider agrees with the documented findings, assessment, and plan of care. Objective - Vital Signs Vital signs: Vital Signs Temp 98.3 F 08/15/22 07:55 Pulse 115 H 08/15/22 08:04 Resp 19 08/15/22 07:55 BP 132/70 08/15/22 07:55 Pulse Ox 98 08/15/22 08:53 FiO2 Intake & Output 08/14/22 08/15/22 08/15/22 18:59 06:59 18:59 Intake Total 1040 Balance 1040 Intake: Oral 1040 Other: Voiding Method Toilet Toilet Toilet # Voids 1 1 2 - Labs CBC & Chem 7: 08/12/22 17:20 08/14/22 07:42
[2022-08-15 11:26] VITALS: BP 118/63; PULSE 120
[2022-08-15] MEDS: ONDANSETRON 4 MG/2 ML VIAL IVP PRN (11:27)
--- NOTE | 2022-08-15 13:06 | P.PN ---
Progress Note - Text Progress Note Date: 08/15/22 Interval History: Patient was seen resting in bed and was directable and agreeable to speak with editorial writer in his room. Currently, the patient is vehemently denying any suicidal or homicidal ideation, intention, and/or plan. He reports no access to firearms or other weapons. He is vehemently denying any auditory or visual hallucinations. He reports no paranoia or other delusions. He does report elevated anxiety. However he attributes this to not being at home. He reports that his anxiety does cause his appetite to drop however he has been able to drink smoothies. He has been adherent with his medication and is not reporting any significant side effects. The patient is requesting discharge so that he may return home and then pursue inpatient substance abuse rehabilitation again. The patient does have a vice squad police officer. He reports that he is currently not court ordered for rehab. He was advised to inform his vice squad police officer of his plan as well as his location. Mental Status Exam: General Appearance: Patient appears to be stated age is alert, directable, and cooperative. Slightly disheveled. Behavior: Patient is calmly seated without any agitated behavior. Fair eye contact. Speech: Patient's speech is fluent and nonpressured. Mood/Affect: Mood is improving mildly, affect is congruent and euthymic Suicidality/Homicidality: Patient denies having any suicidal or homicidal ideation intent or plan. Perceptions: Patient denies any visual hallucinations and denies any auditory hallucinations Though content/process: There is no evidence of any delusional thought content and thought process is linear and goal-directed. Memory and concentration: AOX3, grossly intact for the purposes of this session Judgment and insight: Improving mildly Assessment Polysubstance use disorder Generalized anxiety disorder Plan: -At this time patient DOES NOT meet criteria for inpatient psychiatric admission. He is not overtly manic or psychotic. He is not reporting any suicidal or homicidal ideation, intention, and/or plan however, he will remain at chronically elevated risk for harm to self due to his polysubstance abuse and history of suicide attempts in the past. -Delirium precautions recommended with patient including - avoiding use of narcotics and ELECTRIC ACCOUNTING MACHINE OPERATOR sedatives, limit anticholinergic medications when possible, frequent re-orientation, minimize use of restraints, open window shades during the day and close them at night -Would recommend the following medication changes/additions: No medication recommendations will be made at this time -Discontinue one-to-one sitter -Recommend outpatient psychiatric follow-up and primary care follow-up. Recommend outpatient referrals for substance abuse treatment. -Approximately 15 minutes were spent providing patient with motivational interviewing in order to address his substance abuse. -Psychiatry will sign off at this point, please contact with any questions. Patient is cleared psychiatrically for discharge.
--- NOTE | 2022-08-15 22:24 | P.DS ---
Providers Date of admission: 08/12/22 18:59 Attending physician: Terri Knapp Consults: 08/12/22 18:01 Consult Physician Routine Consulting Provider: Devon Tsang Consult Reason/Comments: psych Do you want consulting provider notified?: Yes 08/13/22 11:49 Consult Physician Routine Consulting Provider: Tyrell Merida Consult Reason/Comments: Tachycardia Do you want consulting provider notified?: Yes Primary care physician: Stated None Hospital Course: Final Diagnosis Substance abuse and withdrawal sent from [facility] Sinus tachycardia likely from withdrawal and anxiety also patient had taken double the amount of his strattera outpatient Anxiety/Depression/PTSD ADD/ADHD Daily tobacco use History of polysubstance abuse Full Code Discharge Disposition Patient stable for discharge to return to [facility] he is medically cleared. He has been cleared by cardiology and recommended to discharge on Toprol XL 50 mg daily. Patient has refused this medication and does not want to take on discharge. He has been re-evaluated by psychiatry and does not require inpatient treatment at this time. Benadryl and levsin discontinued recommend to avoid anticholinergic medications. Recommend to follow up TSH outpatient. Hospital Course This is a 27 year old male with medical history of anxiety, ADD, and polysubstance abuse. Patient was at [facility] for substance abuse and he also admits to using suboxone, klonopin which he states are prescribed to him. Patient is also maintained on zoloft 200 mg daily and Strattera. Patient reports taking double the dosing of Strattera and zoloft on the day of admission and states he wasn't feeling right and that his heart was racing and wanted to be evaluated at the hospital. Per the patient his heart rate was around 170 at that time and he also felt like he was having a panic attack. Psychiatry intial evaluation recommending inpatient treatment. Patient denies suicidal or homicidal ideation, he states that him being in the hospital is making him feel more anxious. Cardiology was consulted and patient was started on Toprol XL. Patient after first dose states that he did not like the way the medication made him feel and is refusing it at this time. Without the medication his heart rate has come down improved and resting in 110s which patient states is normal for him. He had an echocardiogram done showing normal LV with an EF of 55-60%. Patient was re-evaluated by psychiatry and does not require inpatient treatment. He has been cleared medically [facility]15/2022 Patient is evaluated today sitting up in bed. No acute events overnight. He denies chest pain, denies shortness of breath. Denies palpitations. Reports feeling anxious today. Patients follow up labs are unremarkable with normal kidney function. He did have decreased TSH of 0.285, T4 is normal. Heart rate 115, blood pressure 132/70, afebrile, 99% on room air. Thank you for allowing us to participate in the care of this patient. Please see medication reconciliation for a list of current medication. The impression and plan of care has been dictated by Allie Ramirez, Nurse Practitioner as directed. Dr. Lorena MD I have performed a history and physical examination and medical decision making of this patient, discussed the same with the dictator, and agree with the dictators assessment and plan as written, documented as a scribe. Based on total visit time, I have performed more than 50% of this visit. Patient Condition at Discharge: Stable Plan - Discharge Summary Discharge Rx Participant: No New Discharge Prescriptions: Continue PHENobarbitaL [Luminal] 1 dose PO DIRECTED Sertraline [Zoloft] 200 mg PO DAILY ondansetron HCL [Zofran] 8 mg PO QID PRN PRN Reason: Nausea Multivitamins, Thera [Multivitamin (formulary)] 1 tab PO DAILY PRN PRN Reason: supplement Ibuprofen [Motrin Ib] 600 mg PO Q6H PRN PRN Reason: Pain Or Fever > 100.5 Loperamide HCl [Imodium A-D] 4 mg PO QID PRN MDD 16 mg PRN Reason: Diarrhea Docusate [Colace] 100 mg PO BID PRN PRN Reason: Constipation Chlorpheniramine Maleate [Chlor-Trimeton] 4 mg PO Q4H PRN MDD 16mg PRN Reason: Allergy Symptoms clonazePAM [Klonopin ODT] 0.25 mg PO Acetaminophen Tab [Tylenol] 650 mg PO QID Calcium, Magnesium, Zinc With Vitamin D3 1 tab PO DAILY Atomoxetine HCl [Strattera] 40 mg PO Discontinued Hyoscyamine Sulfate [Levsin] 0.125 mg PO QID PRN PRN Reason: cramping Discharge Medication List Acetaminophen Tab [Tylenol] 650 mg PO QID 08/12/22 [History] Calcium, Magnesium, Zinc With Vitamin D3 1 tab PO DAILY 08/12/22 [History] Chlorpheniramine Maleate [Chlor-Trimeton] 4 mg PO Q4H PRN MDD 16mg 08/12/22 [History] Docusate [Colace] 100 mg PO BID PRN 08/12/22 [History] Ibuprofen [Motrin Ib] 600 mg PO Q6H PRN 08/12/22 [History] Loperamide HCl [Imodium A-D] 4 mg PO QID PRN MDD 16 mg 08/12/22 [History] Multivitamins, Thera [Multivitamin (formulary)] 1 tab PO DAILY PRN 08/12/22 [History] PHENobarbitaL [Luminal] 1 dose PO DIRECTED 08/12/22 [History] Sertraline [Zoloft] 200 mg PO DAILY 08/12/22 [History] ondansetron HCL [Zofran] 8 mg PO QID PRN 08/12/22 [History] Atomoxetine HCl [Strattera] 40 mg PO 08/13/22 [History] clonazePAM [Klonopin ODT] 0.25 mg PO 08/13/22 [History] Follow up Appointment(s)/Referral(s): None,Stated [Primary Care Provider] - 1-2 days Patient Instructions/Handouts: Heart Palpitations (ED), Polysubstance Abuse (ED) Activity/Diet/Wound Care/Special Instructions: [facility] - [phone] - Ext [phone] or Ext [phone] Follow up with your primary provider and your own psychiatrist Cleared by cardiology for psychiatric treatment Discharge/Stand Alone Forms: Community Resources, Outpatient Counseling, In Substance Abuse Facilities Discharge Disposition: HOME SELF-CARE
== END 2022-08-15 16:02 | disposition home or self-care (01) | DRG 776 ==
LOC: EC 16:53 → 3SCARD 18:59
PROVIDERS: ADMIT Hospitalist; ATTEND Hospitalist
PROC: B246ZZ4 Ultrasonography of Right and Left Heart, Transesophageal (ICD-10-PCS; principal; 2022-08-14)
DX: F19.132 Other psychoactive substance abuse with withdrawal with perceptual disturbance (principal); F41.1 Generalized anxiety disorder; F17.210 Nicotine dependence, cigarettes, uncomplicated; F90.9 Attention-deficit hyperactivity disorder, unspecified type; F43.10 Post-traumatic stress disorder, unspecified; I48.0 Paroxysmal atrial fibrillation; R00.0 Tachycardia, unspecified; F32.A Depression, unspecified; Z79.899 Other long term (current) drug therapy; Z71.41 Alcohol abuse counseling and surveillance of alcoholic
CPT/HCPCS: 36415; 80048; 80053; 80306; 83735; 84100; 84439; 84443; 84484; 85025; 85610; 85730; 93005; 93306; 94760; 96361; 96374; 96375; 96376; 99285